=== PATIENT | female | born 1950 | race Hispanic/Latino ===

== ENCOUNTER 2020-05-15 10:10 | Emergency (ER) | payer MEDICARE ==
[~2020-05-15 10:10] MED LIST: DICY20TA3 PO; FEXO-59 PO; GLIP1TAB6 PO; TRAM50TA4 PO
[2020-05-15] MEDS ORDERED: LIDOCAINE HCL 2% VISCOUS 15 ML UDCUP ONE (10:44)
[2020-05-15] MEDS ORDERED: DIATR MEGLU/DIATRIZOATE SODIUM 30 ML BOTTLE ONE (11:18)
== END 2020-05-15 14:59 | disposition home or self-care (01) ==
LOC: EDH 10:10
DX: K94.23 Gastrostomy malfunction (principal); I10 Essential (primary) hypertension; E11.9 Type 2 diabetes mellitus without complications; J44.9 Chronic obstructive pulmonary disease, unspecified; Z86.16 Personal history of COVID-19
CPT/HCPCS: 43762; 74018; 99284; Q9963